=== PATIENT | female | born 1965 | race Caucasian/White ===

== ENCOUNTER → 2016-08-23 | Outpatient (CLI) | payer BC ==
[2004-12-24 07:18] VITALS: PULSE 77; TEMP 97
[~2016-08-23] MED LIST: COUMADIN 5MG5 MG/TAB PO; COUMADIN 77.5 MG/TAB PO; K-DUR 10 MEQ T10 MEQ PO; SYNTHROID 0.0.025 MG PO; TIKOSYN0.25 MG PO; TOPROL XL 25MG25 MG PO
== END ==
LOC: MC.RAD 08:20
DX: Z12.31 Encounter for screening mammogram for malignant neoplasm of breast (principal)

== ENCOUNTER 2016-10-27 19:09 | Observation (INO) | payer BC ==
[~2016-10-27] VITALS: Ht 158.8 cm; Wt 50.3 kg
[~2016-10-27 19:09] MED LIST changes: -K-DUR 10 MEQ T10 MEQ PO; -SYNTHROID 0.0.025 MG PO; -TIKOSYN0.25 MG PO; -TOPROL XL 25MG25 MG PO
[2016-10-27] MEDS ORDERED: K-DUR 10 MEQ T10 MEQ PO (19:29)
[2016-10-27] MEDS ORDERED: TIKOSYN0.25 MG PO (19:29)
[2016-10-27] MEDS ORDERED: SYNTHROID 0.0.025 MG PO (19:30)
[2016-10-27 19:31] LABS: BASO # 0.1 (0.0-0.2); BASO % 0.7 % (0.0-2.0); EOS # 0.6 (0.0-0.7); EOS % 8.1 % (0-4.0); GRAN # 3.9 (1.4-6.5); GRAN % 53.9 % (42.2-75.2); MEAN CELL VOLUME 89 fl (80.0-100.0); MEAN CORPUSCULAR HGB CONC 34 g/dl (33.0-37.0); MONO # 0.7 (0.1-0.6); MONO % 9.2 % (1.7-9.3); PLATELET COUNT 173 K/mm3 (130-400); RED BLOOD COUNT 3.72 M/mm3 (4.10-5.30); WHITE BLOOD COUNT 7.2 K/mm3 (4.8-10.8)
[2016-10-27 19:32] LABS: HEMATOCRIT 33.1 % (37.0-47.0); HEMOGLOBIN 11.2 g/dl (12.5-16.0); MEAN CORPUSCULAR HEMOGLOBIN 30 pg (27.0-31.0)
[2016-10-27 19:43] LABS: PARTIAL THROMBOPLASTIN TIME 40.5 SECONDS (26.0-37.0)
[2016-10-27 19:47] LABS: ADJUSTED CALCIUM 8.7 mg/dL (8.4-10.2); ALANINE AMINOTRANSFERASE 22 U/L (9-52); ALBUMIN 4.5 gm/dL (3.5-5.0); ALKALINE PHOSPHATASE 59 U/L (50-136); ANION GAP 15 mmol/L (7-16); BILIRUBIN,TOTAL 1.1 mg/dL (0.0-1.0); BLOOD UREA NITROGEN 32 mg/dL (7-17); CALCIUM 9.1 mg/dL (8.4-10.2); CARBON DIOXIDE 22 mmol/L (22-30); CHLORIDE 103 mmol/L (98-107); CREATININE, serum 1.12 mg/dL (0.52-1.25); GLUCOSE 88 mg/dL (74-106); LIPASE 317 U/L (23-300); POTASSIUM 3.4 mmol/L (3.4-5.0); SODIUM 140 mmol/L (137-145); TOTAL PROTEIN 8.1 gm/dL (6.4-8.2)
[2016-10-27 19:51] LABS: INR 2.4 (0.8-3.0)
[2016-10-27 19:58] LABS: B-TYPE NATRIURETIC PEPTIDE 450 pg/mL (0-125)
[2016-10-27 20:04] LABS: TROPONIN-I < 0.012 ng/mL (0.000-0.034)
[2016-10-27 21:32] VITALS: BP 151/65; PULSE 68; TEMP 98.9
[2016-10-27 22:16] LABS: MAGNESIUM 1.8 mg/dL (1.6-2.3)
[2016-10-28] VITALS (11 sets, daily range): BP systolic 111–167; BP diastolic 52–77; PULSE 61–96; TEMP 97.5–98.2
[2016-10-28 05:50] LABS: BASO % 0.4 % (0.0-2.0); EOS # 0.5 (0.0-0.7); EOS % 9.5 % (0-4.0); GRAN # 2.7 (1.4-6.5); GRAN % 56.5 % (42.2-75.2); LYMPH # 1.2 (1.2-3.4); LYMPH % 25.8 % (20.0-51.0); MEAN CELL VOLUME 89 fl (80.0-100.0); MEAN CORPUSCULAR HGB CONC 34 g/dl (33.0-37.0); MEAN PLATELET VOLUME 10.7 fl (7.4-10.4); MONO # 0.4 (0.1-0.6); MONO % 7.6 % (1.7-9.3); PLATELET COUNT 133 K/mm3 (130-400); RED BLOOD COUNT 3.48 M/mm3 (4.10-5.30); REDCELL DISTRIBUTION WIDTH-CV 12.9 % (11.5-14.5); WHITE BLOOD COUNT 4.8 K/mm3 (4.8-10.8)
[2016-10-28 05:51] LABS: HEMOGLOBIN 10.4 g/dl (12.5-16.0); MEAN CORPUSCULAR HEMOGLOBIN 30 pg (27.0-31.0)
[2016-10-28 06:06] LABS: ANION GAP 8 mmol/L (7-16); BLOOD UREA NITROGEN 26 mg/dL (7-17); CALCIUM 8.3 mg/dL (8.4-10.2); CARBON DIOXIDE 24 mmol/L (22-30); CHLORIDE 108 mmol/L (98-107); CHOLESTEROL 140 mg/dL (120-200); GLUCOSE 88 mg/dL (74-106); HDL CHOLESTEROL 48 mg/dL; LDL CHOLESTEROL 78 mg/dL; POTASSIUM 3.6 mmol/L (3.4-5.0); SODIUM 139 mmol/L (137-145); TRIGLYCERIDE 71 mg/dL
[2016-10-28 06:29] LABS: TROPONIN-I < 0.012 ng/mL (0.000-0.034)
[2016-10-28] MEDS ORDERED: TOPROL XL 25MG25 MG PO (12:53)
[2016-10-28 21:07] LABS: INR 2.4 (0.8-3.0); PROTHROMBIN TIME 27.8 SECONDS (9.7-12.8)
== END 2016-10-28 14:08 | disposition home or self-care (01) ==
LOC: COL.ER 19:09 → MEDICAL 20:27
PROVIDERS: Emergency Medicine; Nurse Practitioner Family
DX: R07.9 Chest pain, unspecified (principal); I48.91 Unspecified atrial fibrillation; Z95.2 Presence of prosthetic heart valve; Z79.01 Long term (current) use of anticoagulants; E03.9 Hypothyroidism, unspecified; R03.0 Elevated blood-pressure reading, without diagnosis of hypertension; D64.9 Anemia, unspecified; R74.8 Abnormal levels of other serum enzymes; I34.0 Nonrheumatic mitral (valve) insufficiency
CPT/HCPCS: A9502; G0378; J2785; J7030

== ENCOUNTER → 2018-10-03 | Outpatient (CLI) | payer OTHER ==
[~2018-10-03] MED LIST changes: +K-DUR 10 MEQ T10 MEQ PO; +SYNTHROID 0.0.025 MG PO; +TIKOSYN0.25 MG PO; +TOPROL XL 25MG25 MG PO
== END ==
LOC: MC.RAD 09:45
DX: Z12.31 Encounter for screening mammogram for malignant neoplasm of breast (principal)

== ENCOUNTER → 2018-12-21 | Outpatient (CLI) | payer OTHER | LOC: COL.CARD 12-13 12:10 | DX: I48.0 Paroxysmal atrial fibrillation (principal); Z79.899 Other long term (current) drug therapy ==

== ENCOUNTER → 2019-06-04 | Outpatient (CLI) | payer BC | LOC: COL.RAD 09:37 | DX: N18.3 Chronic kidney disease, stage 3 (moderate) (principal) ==

== ENCOUNTER 2020-05-13 09:31 | Day surgery (SDC) | payer BC ==
[~2020-05-13] VITALS: Ht 157.5 cm; Wt 47.8 kg
[~2020-05-13 09:31] MED LIST changes: +COUMADIN 6MG6 MG/TAB PO; -COUMADIN 77.5 MG/TAB PO
[2020-05-13 10:33] VITALS: BP 149/63; PULSE 62; TEMP 98.4
[2020-05-13] MEDS ORDERED: LOVENOX 4040 MG/0.4 SQ (10:46)
[2020-05-13 12:20] VITALS: BP 154/72; PULSE 80; TEMP 97.7
--- NOTE | 2020-05-13 12:20 | NUR ---
[place] [facility] [place] [facility] [place] cart from [place]. Pt awake and alert. Pt denies pain or nausea. Coband/gauze dressing to right foot is clean, dry and intact. Post op shoe on. Less than 3 second capillary refill to right big toe and right second toe. Right toes are warm, dry, and pink. Muffin and water given per pt request. Will continue to monitor. Call light within reach.
[2020-05-13 12:35] VITALS: BP 145/73; PULSE 76
[2020-05-13] MEDS ORDERED: NORCO 325 MG-101 TAB PO (12:42)
[2020-05-13 12:50] VITALS: BP 142/73; PULSE 76
--- NOTE | 2020-05-13 12:50 | NUR ---
Pt continues to rest. Tolerating PO food and fluids without difficulties. Call light within reach.
[2020-05-13 13:05] VITALS: BP 135/59; PULSE 78
--- NOTE | 2020-05-13 13:05 | NUR ---
in room. Pt denies needs. Call light within reach.
[2020-05-13 13:20] VITALS: BP 125/60; PULSE 76
--- NOTE | 2020-05-13 13:20 | NUR ---
Discharge instructions reviewed. Pt voices understanding. IV site discontinued with all parts intact. Pt up to dress. Call light within reach.
--- NOTE | 2020-05-13 13:30 | NUR ---
Pt escorted to private car via wheel chair. Pt accompanied home by her .
== END 2020-05-13 13:30 | disposition home or self-care (01) ==
LOC: SDCO 09:31
DX: M20.11 Hallux valgus (acquired), right foot (principal); M20.41 Other hammer toe(s) (acquired), right foot; I48.0 Paroxysmal atrial fibrillation; Q78.0 Osteogenesis imperfecta; I25.10 Atherosclerotic heart disease of native coronary artery without angina pectoris; I05.9 Rheumatic mitral valve disease, unspecified; I12.9 Hypertensive chronic kidney disease with stage 1 through stage 4 chronic kidney disease, or unspecified chronic kidney disease; N18.32 Chronic kidney disease, stage 3b; M81.0 Age-related osteoporosis without current pathological fracture; Z20.822 Contact with and (suspected) exposure to COVID-19; Z79.01 Long term (current) use of anticoagulants; Z95.2 Presence of prosthetic heart valve; Z88.8 Allergy status to other drugs, medicaments and biological substances; Z79.899 Other long term (current) drug therapy; Z79.52 Long term (current) use of systemic steroids; Z79.890 Hormone replacement therapy; Z88.1 Allergy status to other antibiotic agents
CPT/HCPCS: J2704; J3010; J7120

== ENCOUNTER → 2021-01-04 | Outpatient (CLI) | payer BC ==
[~2021-01-04] MED LIST changes: +LOVENOX 4040 MG/0.4 SQ; +NORCO 325 MG-101 TAB PO
== END ==
LOC: COL.LAB 08:00 → SDCO 01-07 07:30 → EDSTATUS 01-07 07:30
DX: Z12.11 Encounter for screening for malignant neoplasm of colon (principal); Z20.822 Contact with and (suspected) exposure to COVID-19

== ENCOUNTER 2021-04-22 07:38 | Day surgery (SDC) | payer BC ==
[2021-04-22] VITALS (8 sets, daily range): BP systolic 112–144; BP diastolic 71–88; PULSE 63–81; TEMP 97–98.3
[~2021-04-22] VITALS: Ht 157.5 cm; Wt 46.3 kg
[2021-04-22] MEDS ORDERED: NORVASC 5MG5 MG/TAB PO (07:49)
[2021-04-22 08:20] LABS: INR 1.6 (0.8-3.0); PROTHROMBIN TIME 17.3 SECONDS (9.7-12.8)
--- NOTE | 2021-04-22 09:45 | NUR ---
Patient returned back into room 3. Per Dr. Jarvis polyp was removed but unable to remove from colon. Verbal orders for soap marbella enema to be performed. Patient states she does not need to use restroom. Patient informed of procedure by RN. Assisted by Alysha YANG. Enema: 1.5 feet - 2 feet of enema tubing inserted until resistance was met then 600-700 ml of enema was released until no more would empty into the colon. Tubing was then pulled out slowly while introducing water while pulling out tube. Patient tolerated procedure well. Patient then went to restroom with assistance of 1.
--- NOTE | 2021-04-22 11:00 | NUR ---
Patient arrived back into bay 4. Alert and awake. Ambulated with stand by assist. at bedside. Patient doing well. Requesting blueberry muffins and water. Dr. Jarvis spoke to patient's about operative report at 1048.
--- NOTE | 2021-04-22 11:15 | NUR ---
Patient tolerated food and drink well. No compalint of pain or nausea. Reports wanting to go home. Patient got dressed with assistance of and went to restroom with stand by assistance.
--- NOTE | 2021-04-22 11:30 | NUR ---
Went through discharge instructions with patient and . Patient and verbalized understanding to education. IV removed with no complications. Patient refusing to use wheelchair and ambulated to patient entrance with . Patient got into personal vehicle unassisted and left in the care of her , Eric.
--- NOTE | 2021-04-22 12:00 | NUR ---
1000 Soap suds enema porformed by CELIA Cortes. See nurses note. Pt up to restroom, hats placed in toilet to catch and strain all contents from enema. 1035 Pt sitting low tran in bed. Monitors and alarms on. Warm blanket, hot tea and mufin provided. 1050 Tolerating food and drink well. Dr. Jarvis ordered soap suds enema to be repeated. Dr. Jarvis in to speak with patient about repeating procedure. 1115 Procedure explained by RN. Provided privacy and positioned patient for procedure. Enema: 1 - 1.5 ft of enema tubing inserted until met with resistance. 550ml of enema released. Tubing slowly removed. Pt tolerated procedure well. Pt up to restroom. Hates placed in toilet to catch and strain all content from enema. No polyp found. 1135 Reported procedure result to DIONISIO Rivero to discharge pt home. 1145 IV removed without complication. Reviewed discharge instructions and education material. Pt and report undertanding. Instructed to dress and open door when ready for discharge. 1200 Pt transfered to personal vehicle to be driven home by .
--- NOTE | 2021-04-22 12:18 | NUR ---
0949 Pt returns from endo procedure via cart and RN assist to [facility]. Cart put into bay and pt allowed to rest on cart. Monitors on and alarms set. Call light within reach. Report received from CELIA Rosa. Pt alert and oriented. . Pt denies any pain or nausea. Dr. Jarvis ordered soap suds enima and straining of content to search for removed polyp lost during procedure. 1000 Pt resting in bed. No complications noted.
== END 2021-04-22 12:00 | disposition home or self-care (01) ==
LOC: SDCO 07:38
PROVIDERS: Family Medicine
DX: Z12.11 Encounter for screening for malignant neoplasm of colon (principal); K63.5 Polyp of colon; I48.91 Unspecified atrial fibrillation; I34.0 Nonrheumatic mitral (valve) insufficiency; I12.9 Hypertensive chronic kidney disease with stage 1 through stage 4 chronic kidney disease, or unspecified chronic kidney disease; N18.31 Chronic kidney disease, stage 3a; M81.0 Age-related osteoporosis without current pathological fracture; E55.9 Vitamin D deficiency, unspecified; J45.909 Unspecified asthma, uncomplicated; E07.9 Disorder of thyroid, unspecified; Z80.0 Family history of malignant neoplasm of digestive organs; Z95.2 Presence of prosthetic heart valve; Z85.828 Personal history of other malignant neoplasm of skin; Z79.01 Long term (current) use of anticoagulants; Z79.899 Other long term (current) drug therapy; Z79.891 Long term (current) use of opiate analgesic; Z79.890 Hormone replacement therapy
CPT/HCPCS: J2704; J7030

== ENCOUNTER 2022-02-06 08:19 | Emergency (ER) | payer BC ==
[~2022-02-06] VITALS: Ht 157.5 cm; Wt 48.2 kg
[~2022-02-06 08:19] MED LIST changes: +NORVASC 5MG5 MG/TAB PO
[2022-02-06 08:33] VITALS: BP 132/78; PULSE 70; TEMP 97.9
== END 2022-02-06 09:38 | disposition home or self-care (01) ==
LOC: COL.ER 08:19
DX: S79.911A Unspecified injury of right hip, initial encounter (principal); W03.XXXA Other fall on same level due to collision with another person, initial encounter

== ENCOUNTER 2023-07-13 08:40 | Day surgery (SDC) | payer BC ==
[~2023-07-13] VITALS: Ht 152.4 cm; Wt 47.2 kg
[~2023-07-13 08:40] MED LIST changes: +COUMADIN 3MG3 MG/TAB PO; -COUMADIN 6MG6 MG/TAB PO; +LR 1,000 ML IV SCH; +Ondansetron 4 MG/2 ML VIAL IV PRN
[2023-07-13 08:53] VITALS: PULSE 60; TEMP 98.2
[2023-07-13] MEDS ORDERED: COZAAR 50MG50 MG/TAB PO (08:57)
[2023-07-13 09:47] LABS: INR 1.2 (0.8-3.0)
[2023-07-13 11:15] VITALS: BP 127/74; PULSE 86; TEMP 97.3
[2023-07-13 11:30] VITALS: BP 144/79; PULSE 70
[2023-07-13 11:45] VITALS: BP 157/79; PULSE 60
--- NOTE | 2023-07-13 12:05 | NUR ---
1109-DR ROGERS IN ROOM DISCUSSING FINDINGS WITH PT'S . 1115-PT TO BAY 4 PER CART FROM PROCEDURE ROOM. PT AMBULATED TO CHAIR WITH ASSISTANCE. REPORT RECEIVED. VS OBTAINED. CALL LIGHT WITHIN REACH. PT DENIES ANY NEEDS AT THIS TIME. 1120-PT TOLERATING WATER, APPLESAUCE, AND MUFFIN. 1145-IV DC'D AT THIS TIME. PT ABLE TO DRESS SELF WITHOUT ASSISTANCE. 1155-DR ROGERS AT BEDSIDE DISCUSSING FINDINGS WITH PT. 1200-DISCHARGE EDUCATION COMPLETED WITH PT AND HER . VERBALIZED UNDERSTANDING OF HOME AND FOLLOW UP CARE. ALL QUESTIONS ANSWERED. DISCHARGE PAPERWORK GIVEN TO PT. 1205-PT OFF UNIT PER WHEELCHAIR. PT DISCHARGED TO HOME WITH HER PER PERSONAL VEHICLE.
== END 2023-07-13 12:05 | disposition home or self-care (01) ==
LOC: SDCO 08:40
PROVIDERS: Family Medicine
DX: Z12.11 Encounter for screening for malignant neoplasm of colon (principal); I48.91 Unspecified atrial fibrillation; Z86.010 Personal history of colon polyps
CPT/HCPCS: J2704; J7120